=== PATIENT | male | born 1955 | race African-American/Black ===

== ENCOUNTER 2018-03-16 10:52 | Emergency (ER) | payer MEDICARE ==
[2018-03-16 11:43] LABS: #Basophils 0.1 thou/uL (0.0-0.2); #Eosinphils 0.1 thou/uL (0.0-0.7); #Monocytes 0.5 thou/uL (0.11-0.59); #Neutrophils 3.8 thou/uL (1.40-6.50); %Basophils 1.4 % (0.0-1.0); %Eosinophils 1.4 % (0.0-10.0); %Lymphocytes 17.7 % (21.0-51.0); %Monocytes 9.2 % (0.0-10.0); %Neutrophils 70.4 % (42.0-75.0); Hemoglobin 11.3 g/dL (14.0-18.0); Mean Corpuscular HGB CONC 32.1 g/dL (32.0-36.0); Mean Corpuscular Hemoglobin 28.9 pg (27.0-31.0); Mean Corpuscular Volume 90.2 fL (78.0-98.0); Mean Platelet Volume 7.2 fL (7.4-10.4); Platelet Count 224 thou/uL (130-400); RBC Distribution Width 13.6 % (11.5-14.5); Red Blood Cell (RBC) Count 3.91 mill/uL (4.70-6.10); White Blood Cell (WBC) Count 5.4 thou/uL (4.8-10.8)
--- NOTE | 2018-03-16 11:50 | RAD ---
AP VIEW OF THE CHEST: INDICATION: History of dyspnea. FINDINGS: There is severe COPD change with prominent bullous disease involving the right lung apex. No pleural effusion, focal consolidation, or pneumothorax is evident. Cardiomediastinal silhouette is within n ormal limits. No acute osseous abnormality is evident. IMPRESSION: Severe changes of emphysema. POS: [facility]
[2018-03-16 12:00] LABS: CK (CPK) 143 U/L (30-200); Lipase 18 U/L (8-78)
[2018-03-16 12:06] LABS: CKMB 3.1 ng/mL (0-6.6); Troponin I Less than 0.010 ng/mL (< 0.028)
[2018-03-16] MEDS ORDERED: Dexamethasone 10 MG/ML VIAL ONE (12:28)
[2018-03-16] MEDS ORDERED: Dexamethasone 4 MG TAB ONE (12:34)
== END 2018-03-16 15:09 | disposition home or self-care (01) ==
LOC: ERS 10:52
DX: J44.1 Chronic obstructive pulmonary disease with (acute) exacerbation (principal); F17.210 Nicotine dependence, cigarettes, uncomplicated; Z79.899 Other long term (current) drug therapy
CPT/HCPCS: 36415; 71045; 82553; 83690; 83880; 84484; 85025; 85379; 93005; 94640; J1100; J7620; J8540

== ENCOUNTER 2018-05-27 12:32 | Outpatient (CLI) | payer MEDICARE ==
[2018-05-27 13:21] LABS: Analyzer IN Cardio OR; Base Excess (BEa) 6.8 mEq/L (-2.0 to +3.0); CO2 Tension 54.7 mmHg (35.0-45.0); Calcium, Ionized 1.19 mmol/L (1.12-1.30); Hemoglobin (Hb) 12.2 g/dL (14.0-18.0); Potassium - ABG Lab 4.45 mmol/L (3.70-5.30)
[2018-05-27 13:28] LABS: O2 Tension (PaO2) 49.2 mmHg (> 80.0)
[2018-05-27 13:30] LABS: ALV-art Gradient 32.155 (0-20); Puncture Site RR
== END 2018-05-27 12:33 | disposition home or self-care (01) ==
LOC: CP 12:32
PROVIDERS: ATTEND Internal Medicine Critical Care Medicine
DX: J44.9 Chronic obstructive pulmonary disease, unspecified (principal)
CPT/HCPCS: 82805; 94060; 94727; 94729

== ENCOUNTER 2018-07-20 02:56 | Emergency (ER) | payer MEDICARE ==
[2018-07-20 03:28] LABS: Bilirubin Negative (Negative); Blood, Urine Negative (Negative); Clarity CLEAR (Clear); Glucose, Urine (Dipstick) Negative (Negative); Leukocyte Negative (Negative); Nitrite Negative (Negative); Protein, Urine (Dipstick) Negative (Neg-Trace); Specific Gravity, Urine 1.017 (1.002-1.036)
[2018-07-20 03:38] LABS: #Eosinphils 0.1 thou/uL (0.0-0.7); #Lymphocytes 0.8 thou/uL (1.20-3.40); #Monocytes 0.8 thou/uL (0.11-0.59); #Neutrophils 5.7 thou/uL (1.40-6.50); %Basophils 0.4 % (0.0-1.0); %Eosinophils 0.8 % (0.0-10.0); %Lymphocytes 10.3 % (21.0-51.0); %Monocytes 10.9 % (0.0-10.0); %Neutrophils 77.6 % (42.0-75.0); Hemoglobin 10.7 g/dL (14.0-18.0); Mean Corpuscular HGB CONC 32.3 g/dL (32.0-36.0); Mean Corpuscular Hemoglobin 28.4 pg (27.0-31.0); Mean Corpuscular Volume 88.2 fL (78.0-98.0); Mean Platelet Volume 7.4 fL (7.4-10.4); Platelet Count 279 thou/uL (130-400); RBC Distribution Width 14.7 % (11.5-14.5); Red Blood Cell (RBC) Count 3.75 mill/uL (4.70-6.10); White Blood Cell (WBC) Count 7.4 thou/uL (4.8-10.8)
[2018-07-20 03:41] LABS: Amphetamine Not Detected (NotDetected); Barbiturates Screen Not Detected (NotDetected); Benzodiazepine Screen Not Detected (NotDetected); Cocaine Metabolite Screen Not Detected (NotDetected); Medtox Control Line Valid? VALID (VALID); Medtox Reader # READER 1; Methadone Not Detected (NotDetected); Methamphetamine Not Detected (NotDetected); Opiate Screen Not Detected (NotDetected); Oxycodone Screen Not Detected (NotDetected); Phencyclidine (PCP) Not Detected (NotDetected); THC/Cannabinoid Screen Not Detected (NotDetected); Tricyclic Screen Not Detected (NotDetected)
[2018-07-20 03:57] LABS: Acetaminophen Less than 6.0 mcg/mL (10.0-30.0); Alcohol Less than 10 mg/dL (Less than 10); Salicylate Less than 8.0 mg/dL (15.0-30.0)
[2018-07-20 03:58] LABS: ALT (SGPT) 25 U/L (8-55); AST (SGOT) 26 U/L (5-34); Albumin 4.4 g/dL (3.4-4.8); Alkaline Phosphatase 51 U/L (40-150); Anion Gap 13 mmol/L (10-20); BUN (Urea Nitrogen) 10 mg/dL (8.4-25.7); Bilirubin, Total 0.3 mg/dL (0.2-1.2); CK (CPK) 421 U/L (30-200); Calc. Creatinine Clearance 0 mL/min (70-130); Calcium 9.9 mg/dL (7.8-10.44); Carbon Dioxide 35 mmol/L (23-31); Chloride 94 mmol/L (98-107); Estimated GFR-MDRD Greater than 90; Globulin 2.7 g/dL (2.4-3.5); Glucose 97 mg/dL (80-115); Potassium 3.8 mmol/L (3.5-5.1); Protein, Total 7.1 g/dL (5.8-8.1); Sodium 138 mmol/L (136-145)
--- NOTE | 2018-07-20 16:02 | CT ---
PRELIMINARY REPORT/[facility]/EMERGENTY AFTER-HOURS PROCEDURE CT Head Without Intravenous Contrast EXAM DATE/TIME: 07/20/2018 3:44 AM CLINICAL HISTORY: 62 years old, male; Signs and symptoms; Altered mental status/memory loss; Confusion or disorientatio n; Patient HX: 62m presents via ems for the evaluation of hallucinations. Patient reports that he has started seeing "things others don't see and people i don't recognize" 3 weeks ago. Patient states currently he is "seeing two long worms, one red and one yellow, with yellow spots all over the wall. " denies history of psych issues in the past. Denies ETOH. Denies drug use. Denies si/hi. Denies command hallucinations. TECHNIQUE: Axial computed tomography images of the head/brain without intravenous contrast. COMPARISON: No relevant prior studies available. FINDINGS: Brain: Normal. No hemorrhage. No significant white matter disease. No edema. Ventricles: Normal. No ventriculomegaly. Bones/joints: Normal. No acute fracture. Sinuses: Normal as visualized. No acute sinusitis. Mastoid air cells: Normal as visualized. No mastoid effusion. Soft tissues: Normal. IMPRESSION: No acute intracranial hemorrhage. Thank you for allowing us to participate in the care of your patient. Dictated and Authenticated by: Maurilio Kelly MD 07/20/2018 3:56 AM Central Time ([place] & [place]) FINAL REPORT BRAIN CT WITHOUT IV CONTRAST: EMERGENCY AFTER HOURS EXAM TIME: 3:45 a.m. DATE: 07/20/2018. FINDINGS: No mass or bleed or other acute process. POS: [facility]
== END 2018-07-20 09:43 | disposition home or self-care (01) ==
LOC: ERS 02:56
DX: R44.1 Visual hallucinations (principal); I10 Essential (primary) hypertension; F17.210 Nicotine dependence, cigarettes, uncomplicated; J43.9 Emphysema, unspecified; Z79.899 Other long term (current) drug therapy
CPT/HCPCS: 36415; 70450; 80053; 80306; 80307; 81003; 82550; 84443; 85025

== ENCOUNTER 2020-07-06 11:02 | Outpatient (CLI) | payer MEDICARE ==
--- NOTE | 2020-07-06 11:29 | ULT ---
EXAM: US Abdominal Aorta PROVIDED CLINICAL HISTORY: Screening evaluation for abdominal aortic aneurysm COMPARISON: None FINDINGS: Abdominal aorta is normal in caliber. Proximal abdominal aorta measures 2.1 cm in diameter, mid abdom inal aorta measures 1.8 cm in diameter, and distal abdominal aorta measures 1.5 cm in diameter. Aortic bifurcation and proximal common iliac artery are not visualized and obscured due to shadowing from bowel gas. IMPRESSION: 1. No evidence of an abdominal aortic aneurysm. 2. Nonvisualization bilateral common iliac arteries.
--- NOTE | 2020-07-06 12:51 | CT ---
CT pulmonary lung scan without IV contrast INDICATION: Lung cancer screening protocol; former smoker of 1 pack per day 30 years ago with over a year agopersonal history of smoking COMPARISON: None FINDINGS: LUNGS: Nodules\mass: There is a 1.3 x 1.2 cm spiculated nodule within the lingula on image 77 series 3 and i mage 43 of series 5. There is a small sub-4 mm pulmonary nodule within the left upper lobe on image 20 of series 3. Emphysema: Severe emphysema with bullous changes of the upper lobes. Additional findings: There are coronary artery and thoracic aortic calcifications. Mediastinum: No lymphadenopathy. Upper abdomen: There is a small hypodensity within the left hepatic lobe measuring 6 mm that cannot b e further characterize. Visualized adrenal glands reveal no definite acute abnormality. Osseous structures: No acute abnormality. There is scattered degenerative and osteoarthritic change present. IMPRESSION: Lung-RADS Category 4B: Suspicious Recommendation: Pulmonary consultation is advised to determine direction of further evaluation. See a dditional recommendations below. Category S: Severe emphysema, coronary artery and thoracic aortic calcifications. Left hepatic lobe h ypodensity incompletely characterized. Recommend follow-up CT of the abdomen and pelvis with and without IV contrast; multiphase exam, for further characterization of the liver and to evaluate for a ny signs of metastatic disease to the abdomen and pelvis. Category C: Not applicable.
== END 2020-07-06 11:03 | disposition home or self-care (01) ==
LOC: BICULT 11:02
PROVIDERS: ATTEND Registered Nurse
DX: Z13.6 Encounter for screening for cardiovascular disorders (principal); Z12.2 Encounter for screening for malignant neoplasm of respiratory organs; Z87.891 Personal history of nicotine dependence; J43.9 Emphysema, unspecified; I25.10 Atherosclerotic heart disease of native coronary artery without angina pectoris; I70.0 Atherosclerosis of aorta; K76.89 Other specified diseases of liver
CPT/HCPCS: 76775; G0297

== ENCOUNTER 2020-07-28 11:04 | Outpatient (CLI) | payer MEDICARE ==
--- NOTE | 2020-07-28 13:22 | PET ---
Exam: PET scan with CT attenuation correction HISTORY: Left upper lobe spiculated nodule noted on low-dose screening CT. COMPARISON: Low-dose screening CT 07/06/2020. TECHNIQUE: PET scan with CT attenuation correction is performed from the base of the brain to the pro ximal thighs, following the intravenous administration of 10.9 mCi of [id number]. FINDINGS: Head and neck: No abnormal FDG localization. Chest: CT used for attenuation correction demonstrates stable emphysematous changes. There is no abno rmal FDG localization in the axilla or mediastinum. No abnormal FDG localization in the right lung. No abnormal FDG localization in the left lung. Specifically, the spiculated mass in the left upper lo be is not FDG avid. The maximum SUV is less than 1. There are no areas of abnormal FDG localization in the chest. There is a solitary focus of increased FDG avidity involving the lateral left chest lik shira representing muscular activity. Abdomen pelvis: No abnormal FDG localization. Osseous structures: No abnormal FDG localization. IMPRESSION: No evidence of FDG avidity with regards to the spiculated mass in the left upper lobe. Given the riya ent's smoking history, six-month follow-up CT is recommended. Transcribed Date/Time: 07/28/2020 1:49 PM
== END 2020-07-28 11:05 | disposition home or self-care (01) ==
LOC: PET 11:04
PROVIDERS: ATTEND Internal Medicine Critical Care Medicine
DX: R91.8 Other nonspecific abnormal finding of lung field (principal)
CPT/HCPCS: 78815; A9552

== ENCOUNTER 2021-01-31 09:19 | Outpatient (CLI) | payer MEDICARE ==
[~2021-01-31 09:19] MED LIST: Iopamidol 370 76% 100 ML VIAL ONE
[2021-01-31 10:09] LABS: Estimated GFR-MDRD - POC Greater than 90
== END 2021-01-31 09:20 | disposition home or self-care (01) ==
LOC: CT 09:19
PROVIDERS: ATTEND Internal Medicine Critical Care Medicine
DX: R91.1 Solitary pulmonary nodule (principal)
CPT/HCPCS: 71260; 82565